=== PATIENT | female | born 1980 | race Asian ===

== ENCOUNTER 2016-12-14 12:56 | Outpatient (CLI) | payer OTHER | END 2016-12-14 13:04 | disposition short-term general hospital (02) | LOC: AMB 12:56 | DX: M54.2 Cervicalgia (principal); V49.88XA Car occupant (driver) (passenger) injured in other specified transport accidents, initial encounter; Y92.488 Other paved roadways as the place of occurrence of the external cause | CPT/HCPCS: A0425; A0429 ==

== ENCOUNTER 2016-12-14 13:11 | Emergency (ER) | payer OTHER ==
[~2016-12-14] VITALS: Ht 157.5 cm; Wt 74.8 kg
[2016-12-14 13:38] VITALS: TEMP 98.6
[2016-12-14 14:50] VITALS: BP 132/82
== END 2016-12-14 14:50 | disposition home or self-care (01) ==
LOC: ED 13:11
DX: S16.1XXA Strain of muscle, fascia and tendon at neck level, initial encounter (principal); S13.8XXA Sprain of joints and ligaments of other parts of neck, initial encounter; V49.9XXA Car occupant (driver) (passenger) injured in unspecified traffic accident, initial encounter; Y93.89 Activity, other specified; Y92.89 Other specified places as the place of occurrence of the external cause; Y99.8 Other external cause status
CPT/HCPCS: 99282